=== PATIENT | female | born 1985 ===

== ENCOUNTER 2017-03-25 05:00 | Observation (INO) | payer MEDICAID ==
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
[2017-03-25 05:58] LABS: BASO % 0.7 % (0.0-2.0); EOS % 1.2 % (0.0-4.0); HEMATOCRIT 40.2 % (34.0-47.0); LYMPH # 1.6 K/uL (1.0-4.3); LYMPH % 42.1 % (20.0-40.0); MEAN CELL VOLUME 84.8 fL (81.0-99.0); MEAN CORPUSCULAR HEMOGLOBIN 27.5 pg (27.0-31.0); MEAN CORPUSCULAR HGB CONC 32.4 g/dL (33.0-37.0); MEAN PLATELET VOLUME 7.3 fL (7.2-11.7); MONO # 0.4 K/uL (0.0-0.8); MONO % 9.7 % (0.0-10.0); RBC URINE < 1 /hpf (0-3); URINE BACTERIA RARE (<OCC); URINE BILIRUBIN NEGATIVE (NEGATIVE); URINE BLOOD NEGATIVE (NEGATIVE); URINE COLOR Straw (YELLOW); URINE GLUCOSE (UA) NORMAL (Normal); URINE KETONE NEGATIVE (NEGATIVE); URINE LEUKOCYTE ESTERASE NEG Leu/uL (Negative); URINE PROTEIN 2+ mg/dL (NEGATIVE); URINE UROBILINOGEN NORMAL mg/dL (0.2-1.0); WBC URINE 1 /hpf (0-5); WHITE BLOOD COUNT 3.7 K/uL (4.8-10.8)
[2017-03-25 06:00] LABS: CHLORIDE 106 mmol/L (98-107); SODIUM 147 mmol/L (132-148)
[2017-03-25 06:02] LABS: GFR AFRICAN-AMERICAN > 60
[2017-03-25 06:03] LABS: ALKALINE PHOSPHATASE 78 U/L (38-126); ALT/SGPT 51 U/L (9-52); AST/SGOT 80 U/L (14-36); BILIRUBIN,TOTAL 1.1 mg/dL (0.2-1.3); BLOOD UREA NITROGEN 10 mg/dL (7-17); CALCIUM 9.3 mg/dl (8.6-10.4); CARBON DIOXIDE 20 mmol/L (22-30); GLUCOSE,RANDOM 96 mg/dL (65-105); TOTAL PROTEIN 9.4 g/dL (6.3-8.3)
[2017-03-25 06:11] LABS: ALB/GLOB RATIO 1.8 (1.0-2.1)
[2017-03-25 06:15] LABS: ALCOHOL SERUM 444 mg/dl (0-10)
[2017-03-25 07:38] VITALS: BMI 22.6
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
--- NOTE | 2017-03-25 09:22 | CT ---
CT face History: Right orbital swelling. Comparison: None available. Technique: Multiple contiguous axial images were performed through the face without the use of intravenous contrast. Subsequently, sagittal and coronal reformatted images were obtained. This CT exam was performed using one or more of the following dose reduction techniques: Automated exposure control, adjustment of the mA and/or kV according to patient size, and/or use of iterative reconstruction technique. Findings: Comminuted bilateral depressed nasal bone fractures. Right periorbital soft tissue swelling. Bowing deformities of the bilateral zygomatic arches. These deformities are of indeterminate chronicity and may be acute and or acute on chronic. Multiple dental caries noted. Mild mucosal thickening of the right maxillary sinus and ethmoid air cells. Incidentally noted is a focal hypodensity at the level of the right caudate head/periventricular white matter which may represent a lacunar infarct. Orbital globes appear preserved. Remainder of the visualized osseous structures are grossly preserved. Impression: Comminuted bilateral depressed nasal bone fractures. Right periorbital soft tissue swelling. Bowing deformities of the bilateral zygomatic arches. These deformities are of indeterminate chronicity and may be acute and or acute on chronic. Multiple dental caries noted. Mild mucosal thickening of the right maxillary sinus and ethmoid air cells. Incidentally noted is a focal hypodensity at the level of the right caudate head/periventricular white matter which may represent a lacunar infarct.
--- NOTE | 2017-03-25 09:56 | RAD ---
Right elbow three views History: Pain and swelling. Comparison: None available. Findings: Prominent subcutaneous air and soft tissue swelling seen at the posterior soft tissues of the elbow at the level of the olecranon bursa/olecranon. No evidence of discrete radiopaque foreign body identified. On the frontal view, there is some minimal cortical prominence seen at the level of the medial humeral condyle, nonspecific, evaluation is somewhat limited at this level secondary to suboptimal patient positioning. No significant elbow joint effusion. Impression: Prominent subcutaneous air and soft tissue swelling seen at the posterior soft tissues of the elbow at the level of the olecranon bursa/olecranon. No evidence of discrete radiopaque foreign body identified. On the frontal view, there is some minimal cortical prominence seen at the level of the medial humeral condyle, nonspecific, evaluation is somewhat limited at this level secondary to suboptimal patient positioning. No significant elbow joint effusion. If pain persists, consider MRI.
[2017-03-25 12:37] VITALS: O2SAT 99
[2017-03-25 15:38] VITALS: BP 106/70; PULSE 95; RESP 18; TEMP 98
== END 2017-03-25 15:24 | disposition home or self-care (01) ==
LOC: C.ER 05:00 → C.9OBSV 06:39
PROVIDERS: ADMIT Emergency Medicine; ATTEND Emergency Medicine
DX: F10.120 Alcohol abuse with intoxication, uncomplicated (principal); S02.2XXA Fracture of nasal bones, initial encounter for closed fracture; Y04.0XXA Assault by unarmed brawl or fight, initial encounter; Y92.9 Unspecified place or not applicable; T14.8 Other injury of unspecified body region
CPT/HCPCS: 70450; 70481; 73080; 80053; 80320; 80324; 80345; 80346; 80349; 80353; 80358; 80361; 81001; 83992; 85025; 96372; 96374; 99285; G0378; J2060